=== PATIENT | female | born 1935 | race Caucasian/White ===

== ENCOUNTER → 2016-08-06 | Outpatient (CLI) | payer MEDICARE, OTHER | LOC: LAB 09:26 | PROVIDERS: Internal Medicine Nephrology | DX: N18.3 Chronic kidney disease, stage 3 (moderate) (principal) | CPT/HCPCS: 36415; 80048; 81001; 82043; 82570 ==

== ENCOUNTER → 2016-09-28 | Outpatient (CLI) | payer MEDICARE, OTHER | LOC: HEART 5 10:53 | DX: R00.2 Palpitations (principal); I48.0 Paroxysmal atrial fibrillation; R55 Syncope and collapse | CPT/HCPCS: 93306 ==

== ENCOUNTER → 2016-10-01 | Outpatient (CLI) | payer MEDICARE, OTHER | LOC: HEART 5 09-21 09:30 | DX: I65.29 Occlusion and stenosis of unspecified carotid artery (principal); R55 Syncope and collapse; I10 Essential (primary) hypertension ==

== ENCOUNTER → 2016-10-02 | Outpatient (CLI) | payer MEDICARE, OTHER | LOC: RT 12:09 | DX: R55 Syncope and collapse (principal) ==

== ENCOUNTER → 2020-08-06 | Outpatient (CLI) | payer MEDICARE, OTHER ==
[~2020-08-06] MED LIST: AREDS; ASPIR 8181 MG PO; ATORVASTATIN CA80 MG PO; AUGMENTIN 875-1 EACH PO; BACITRACIN ZINC TD; BENTYL 20MG TAB20 MG PO; BETAPACE160 MG PO; BUSPIRONE HCL7.5 MG PO; CARDIZEM CD360 MG PO; CILOSTAZOL50 MG PO; COLACE 100MG C100 MG PO; DILTIAZEM ER120 M1 PO; DITROPAN XL15 MG PO; DITROPAN XL5 MG PO; ELIQUIS5 MG PO; ESCITALOPRAM OX10 MG PO; ESCITALOPRAM OX20 MG PO; FEOSOL325 MG PO; FOLIC ACID 1 MG1 MG PO; GABAPENTIN600 MG PO; HYDROCODON-ACE1 EAC2 PO; I-VITE TABLET1 EACH PO; IMDUR ER TAB 3030 MG PO; IPRAT-ALBUT 0.5-3 ML NEB; IRON325 M1 PO; ISORDIL TAB 3030 MG PO; ISOSORBIDE MONO30 MG PO; KEFLEX CAP 500500 MG PO; KEFLEX500 MG PO; LASIX20 MG PO; MESALAMINE DR400 MG PO; METOPROLOL SUC100 MG PO; MUCINEX600 MG PO; MYCOSTATIN POWD15 GM TOP; MYRBETRIQ50 MG PO; NEURONTIN 300300 MG PO; NITROSTAT0.4 MG SL; NORCO 5-325 TA1 EACH PO; NORVASC2.5 MG PO; PENTASA500 MG PO; PLETAL 100 MG100 MG PO; PRAMIPEXOLE D0.75 MG PO; PRAMIPEXOLE DIHY1 MG PO; PROAIR HFA8.5 GM INH; PROTONIX 20 MG20 MG PO; SENOKOT-S TABL1 EACH PO; SOTALOL120 MG PO; SYNTHROID100 MCG PO; SYNTHROID88 MCG PO; TOPROL XL200 MG PO; TYLENOL W/CODEIN1 E1 PO; UNISOM PO; VITAMIN B PO; ZOLOFT50 MG PO
[2020-08-07 10:12] LABS: CREATININE, URINE 76.4 mg/dL (Not Estab.)
== END ==
LOC: LAB 08:30
PROVIDERS: Internal Medicine Nephrology
DX: N18.30 Chronic kidney disease, stage 3 unspecified (principal)
CPT/HCPCS: 36415; 80053; 81001; 82043; 82570; 84156

== ENCOUNTER 2020-10-24 19:13 | Inpatient (IN) | payer MEDICARE, OTHER ==
[~2020-10-24] VITALS: Ht 162.6 cm; Wt 83.9 kg
[~2020-10-24 19:13] MED LIST changes: -ESCITALOPRAM OX10 MG PO; -FOLIC ACID 1 MG1 MG PO; -GABAPENTIN600 MG PO; -HYDROCODON-ACE1 EAC2 PO; -IPRAT-ALBUT 0.5-3 ML NEB; -ISOSORBIDE MONO30 MG PO; -MESALAMINE DR400 MG PO; -METOPROLOL SUC100 MG PO; -PRAMIPEXOLE D0.75 MG PO; -SOTALOL120 MG PO
[2020-10-24 19:59] LABS: HEMOGLOBIN 12.2 gm/dl (12.3-15.3); RED BLOOD COUNT 3.35 M/UL (4.00-5.10)
[2020-10-24 20:33] LABS: BUN/CREATININE RATIO 26 (0-10)
[2020-10-24 22:59] LABS: BORDETELLA PARAPERTUSSIS Not Detected (Not Detectd); BORDETELLA PERTUSSIS Not Detected (Not Detectd); CHLAMYDIA PNEUMONIAE Not Detected (Not Detectd); CORONAVIRUS HKU1 Not Detected (Not Detectd); CORONAVIRUS NL63 Not Detected (Not Detectd); CORONAVIRUS OC43 Not Detected (Not Detectd); CORONOAVIRUS 229E Not Detected (Not Detectd); HUMAN METAPNEUMOVIRUS Not Detected (Not Detectd); HUMAN RHINOVIRUS/ENTEROVIRUS Not Detected (Not Detectd); INFLUENZA A Not Detected (Not Detectd); INFLUENZA B Not Detected (Not Detectd); MYCOPLASMA PNEUMONIAE Not Detected (Not Detectd); PARAINFLUENZA VIRUS 1 Not Detected (Not Detectd); PARAINFLUENZA VIRUS 2 Not Detected (Not Detectd); PARAINFLUENZA VIRUS 3 Not Detected (Not Detectd); PARAINFLUENZA VIRUS 4 Not Detected (Not Detectd); RESPIRATORY SYNCYTIAL VIRUS Not Detected (Not Detectd)
[2020-10-25 00:22] LABS: SARS-CoV-2 NOT DETECTED (Not Detectd)
[2020-10-25] MEDS ORDERED: ESCITALOPRAM OX10 MG PO (00:53)
[2020-10-25] MEDS ORDERED: ISOSORBIDE MONO30 MG PO (00:54)
[2020-10-25] MEDS ORDERED: MESALAMINE DR400 MG PO (00:56)
[2020-10-25] MEDS ORDERED: METOPROLOL SUC100 MG PO (00:57)
[2020-10-25] MEDS ORDERED: PLETAL 100 MG100 MG PO (00:58)
[2020-10-25] MEDS ORDERED: SOTALOL120 MG PO (00:58)
[2020-10-25] MEDS ORDERED: PRAMIPEXOLE D0.75 MG PO (00:58)
[2020-10-25] MEDS ORDERED: FOLIC ACID 1 MG1 MG PO (00:59)
[2020-10-25] MEDS ORDERED: HYDROCODON-ACE1 EAC2 PO (01:00)
[2020-10-25] MEDS ORDERED: GABAPENTIN600 MG PO (01:04)
[2020-10-25 07:20] LABS: HEMOGLOBIN 12.6 gm/dl (12.3-15.3); RED BLOOD COUNT 3.51 M/UL (4.00-5.10)
[2020-10-25 07:21] LABS: WHITE BLOOD COUNT 7.4 K/UL (4.5-11.0)
[2020-10-26 05:00] LABS: HEMOGLOBIN 11.2 gm/dl (12.3-15.3)
[2020-10-26 05:03] LABS: RED BLOOD COUNT 3.11 M/UL (4.00-5.10); WHITE BLOOD COUNT 10.2 K/UL (4.5-11.0)
--- NOTE | 2020-10-26 23:52 | NUR ---
patient 02 saturation low at this time (85-88%). Oxygen titrated to 5L, Respiratory notified to administer breathing treatment. MD notified of patient status condition change. Asked physician to assess patient at this time. New orders for Robitussin DM 15ml QID prn. WCTM
--- NOTE | 2020-10-26 23:59 | NUR ---
Post breathing treatment, highest 02 saturation is 92%, patient in high bates's, had patient cough to try to clear secretions. Patient unable to clear secretions herself at this time. notified. ALYX
--- NOTE | 2020-10-27 05:45 | NUR ---
Patient 02 saturation low at this time. 85-85% Oxygen tirated to 5L, Respiratory notified to administer breathing treatment. MD notified of patient status condition change. Asked physician to assess pateint. New orders for Robitussin DM 15ml QID via telephone. TM
[2020-10-28] MEDS ORDERED: AUGMENTIN 875-1 EACH PO (16:30)
[2020-10-28] MEDS ORDERED: IPRAT-ALBUT 0.5-3 ML NEB (16:30)
--- NOTE | 2020-10-29 12:36 | NUR ---
1215- DR MONAHAN NOTIFIED OF FAMILY CONCERN WITH MEDCATION THAT PATIENT NO LONGER TAKES AND IS ON [facility] MED LIST. NEW ORDER TO [facility].
== END 2020-10-29 12:24 | disposition home or self-care (01) | DRG 177 ==
LOC: ER1 19:13 → MED SURG 4 22:28 → CDU 22:28 → MED SURG 4 10-25 00:06
PROVIDERS: Family Medicine; Internal Medicine; Physician Assistant Medical; ADMIT Internal Medicine
DX: J69.0 Pneumonitis due to inhalation of food and vomit (principal); J96.21 Acute and chronic respiratory failure with hypoxia; M62.82 Rhabdomyolysis; N17.9 Acute kidney failure, unspecified; J44.0 Chronic obstructive pulmonary disease with (acute) lower respiratory infection; J44.1 Chronic obstructive pulmonary disease with (acute) exacerbation; K51.90 Ulcerative colitis, unspecified, without complications; Z20.822 Contact with and (suspected) exposure to COVID-19; I12.9 Hypertensive chronic kidney disease with stage 1 through stage 4 chronic kidney disease, or unspecified chronic kidney disease; N18.30 Chronic kidney disease, stage 3 unspecified; I48.0 Paroxysmal atrial fibrillation; I49.5 Sick sinus syndrome; K21.9 Gastro-esophageal reflux disease without esophagitis; R60.9 Edema, unspecified; I73.9 Peripheral vascular disease, unspecified; E03.9 Hypothyroidism, unspecified; I65.22 Occlusion and stenosis of left carotid artery; F32.9 Major depressive disorder, single episode, unspecified; H91.90 Unspecified hearing loss, unspecified ear; M81.0 Age-related osteoporosis without current pathological fracture; M51.36 Other intervertebral disc degeneration, lumbar region; K57.90 Diverticulosis of intestine, part unspecified, without perforation or abscess without bleeding; E55.9 Vitamin D deficiency, unspecified; Z95.820 Peripheral vascular angioplasty status with implants and grafts; Z79.899 Other long term (current) drug therapy; Z90.710 Acquired absence of both cervix and uterus; Z80.52 Family history of malignant neoplasm of bladder; Z95.0 Presence of cardiac pacemaker; Z80.8 Family history of malignant neoplasm of other organs or systems; Z81.8 Family history of other mental and behavioral disorders; Z87.891 Personal history of nicotine dependence
CPT/HCPCS: 36415; 36600; 70450; 71045; 80048; 80053; 81001; 82550; 82553; 82803; 83605; 83735; 83880; 84484; 85025; 85027; 85610; 87040; 87077; 87081; 87086; 87186; 87633; 93005; 94640; 94664; 94760; 96365; 96366; 96375; 97116-GP-CQ; 97161; 97530-GP-CQ; 99285; G0378; J1650; J2543; J2920; J2930; J3370; J7030

== ENCOUNTER → 2020-12-28 | Outpatient (CLI) | payer MEDICARE, OTHER ==
[~2020-12-28] MED LIST changes: +ESCITALOPRAM OX10 MG PO; +FOLIC ACID 1 MG1 MG PO; +GABAPENTIN600 MG PO; +HYDROCODON-ACE1 EAC2 PO; +IPRAT-ALBUT 0.5-3 ML NEB; +ISOSORBIDE MONO30 MG PO; +MESALAMINE DR400 MG PO; +METOPROLOL SUC100 MG PO; +PRAMIPEXOLE D0.75 MG PO; +SOTALOL120 MG PO
== END ==
LOC: WCC 13:00
DX: I87.2 Venous insufficiency (chronic) (peripheral) (principal); L97.822 Non-pressure chronic ulcer of other part of left lower leg with fat layer exposed; L97.812 Non-pressure chronic ulcer of other part of right lower leg with fat layer exposed; S91.301A Unspecified open wound, right foot, initial encounter; I13.0 Hypertensive heart and chronic kidney disease with heart failure and stage 1 through stage 4 chronic kidney disease, or unspecified chronic kidney disease; N18.4 Chronic kidney disease, stage 4 (severe); I50.9 Heart failure, unspecified; I25.10 Atherosclerotic heart disease of native coronary artery without angina pectoris; J44.9 Chronic obstructive pulmonary disease, unspecified; I73.9 Peripheral vascular disease, unspecified; R60.1 Generalized edema; Z87.891 Personal history of nicotine dependence; Z79.891 Long term (current) use of opiate analgesic; Z79.2 Long term (current) use of antibiotics; Z79.899 Other long term (current) drug therapy; X58.XXXA Exposure to other specified factors, initial encounter
CPT/HCPCS: G0463

== ENCOUNTER → 2021-01-03 | Outpatient (CLI) | payer MEDICARE, OTHER | LOC: WCC 13:15 | DX: I87.2 Venous insufficiency (chronic) (peripheral) (principal); L97.812 Non-pressure chronic ulcer of other part of right lower leg with fat layer exposed; I13.0 Hypertensive heart and chronic kidney disease with heart failure and stage 1 through stage 4 chronic kidney disease, or unspecified chronic kidney disease; I50.9 Heart failure, unspecified; N18.4 Chronic kidney disease, stage 4 (severe); J44.9 Chronic obstructive pulmonary disease, unspecified; I73.9 Peripheral vascular disease, unspecified; Z95.820 Peripheral vascular angioplasty status with implants and grafts; Z79.84 Long term (current) use of oral hypoglycemic drugs; I25.10 Atherosclerotic heart disease of native coronary artery without angina pectoris; R60.1 Generalized edema ==

== ENCOUNTER → 2021-01-10 | Outpatient (CLI) | payer MEDICARE, OTHER | LOC: WCC 14:00 | DX: I87.2 Venous insufficiency (chronic) (peripheral) (principal); L97.812 Non-pressure chronic ulcer of other part of right lower leg with fat layer exposed; L97.822 Non-pressure chronic ulcer of other part of left lower leg with fat layer exposed; S91.301A Unspecified open wound, right foot, initial encounter; X58.XXXA Exposure to other specified factors, initial encounter; I73.9 Peripheral vascular disease, unspecified; I13.0 Hypertensive heart and chronic kidney disease with heart failure and stage 1 through stage 4 chronic kidney disease, or unspecified chronic kidney disease; N18.4 Chronic kidney disease, stage 4 (severe); I50.9 Heart failure, unspecified; J44.9 Chronic obstructive pulmonary disease, unspecified; Z95.820 Peripheral vascular angioplasty status with implants and grafts; Z79.899 Other long term (current) drug therapy; Z79.891 Long term (current) use of opiate analgesic; I25.10 Atherosclerotic heart disease of native coronary artery without angina pectoris; R60.1 Generalized edema | CPT/HCPCS: G0463 ==

== ENCOUNTER → 2021-01-24 | Outpatient (CLI) | payer MEDICARE, OTHER ==
[2021-01-24 12:07] LABS: HEMOGLOBIN 11.5 gm/dl (12.3-15.3); RED BLOOD COUNT 3.2 M/UL (4.00-5.10); WHITE BLOOD COUNT 4.9 K/UL (4.5-11.0)
== END ==
LOC: LAB 10:19
PROVIDERS: Family Medicine
DX: I12.9 Hypertensive chronic kidney disease with stage 1 through stage 4 chronic kidney disease, or unspecified chronic kidney disease (principal); N18.32 Chronic kidney disease, stage 3b; D63.1 Anemia in chronic kidney disease; E03.9 Hypothyroidism, unspecified; E53.8 Deficiency of other specified B group vitamins; E78.2 Mixed hyperlipidemia
CPT/HCPCS: 36415; 80053; 80061; 80076; 82607; 82728; 83540; 83550; 84439; 84443; 85027; 85045

== ENCOUNTER → 2021-01-31 | Outpatient (CLI) | payer MEDICARE, OTHER | LOC: WCC 09:00 | DX: I87.2 Venous insufficiency (chronic) (peripheral) (principal); L97.821 Non-pressure chronic ulcer of other part of left lower leg limited to breakdown of skin; L97.811 Non-pressure chronic ulcer of other part of right lower leg limited to breakdown of skin; S91.301A Unspecified open wound, right foot, initial encounter; I12.9 Hypertensive chronic kidney disease with stage 1 through stage 4 chronic kidney disease, or unspecified chronic kidney disease; N18.4 Chronic kidney disease, stage 4 (severe); I50.9 Heart failure, unspecified; I25.10 Atherosclerotic heart disease of native coronary artery without angina pectoris; I73.9 Peripheral vascular disease, unspecified; J44.9 Chronic obstructive pulmonary disease, unspecified; R60.1 Generalized edema; Z79.2 Long term (current) use of antibiotics; Z79.899 Other long term (current) drug therapy; X58.XXXA Exposure to other specified factors, initial encounter | CPT/HCPCS: 97597 ==

== ENCOUNTER 2021-05-17 10:57 | Observation (INO) | payer MEDICARE, OTHER ==
[~2021-05-17] VITALS: Ht 157.5 cm; Wt 96.2 kg
[~2021-05-17 10:57] MED LIST changes: +ATORVASTATIN CA40 MG PO; -ATORVASTATIN CA80 MG PO; -METOPROLOL SUC100 MG PO; +METOPROLOL SUCC50 MG PO
[2021-05-17 14:58] LABS: HEMOGLOBIN 12.1 gm/dl (12.3-15.3); RED BLOOD COUNT 3.9 M/UL (4.00-5.10); WHITE BLOOD COUNT 6.8 K/UL (4.5-11.0)
[2021-05-17 16:13] LABS: BUN/CREATININE RATIO 31 (0-10)
[2021-05-17] MEDS ORDERED: ELIQUIS5 MG PO (17:32)
[2021-05-17] MEDS ORDERED: LEVOTHYROXINE137 MCG PO (17:32)
[2021-05-17] MEDS ORDERED: CARDIZEM LA120 MG PO (17:33)
[2021-05-17] MEDS ORDERED: PRESERVISION A1 EAC2 PO (17:33)
[2021-05-18 06:48] LABS: HEMOGLOBIN 10.6 gm/dl (12.3-15.3); WHITE BLOOD COUNT 6.1 K/UL (4.5-11.0)
[2021-05-18 06:52] LABS: RED BLOOD COUNT 3.43 M/UL (4.00-5.10)
[2021-05-19 06:27] LABS: HEMOGLOBIN 10.2 gm/dl (12.3-15.3); RED BLOOD COUNT 3.34 M/UL (4.00-5.10); WHITE BLOOD COUNT 6.4 K/UL (4.5-11.0)
[2021-05-20 06:10] LABS: HEMOGLOBIN 10.8 gm/dl (12.3-15.3); RED BLOOD COUNT 3.5 M/UL (4.00-5.10); WHITE BLOOD COUNT 6.6 K/UL (4.5-11.0)
[2021-05-20] MEDS ORDERED: LASIX20 MG PO (09:30)
[2021-05-20] MEDS ORDERED: OMNICEF 300 MG300 MG PO (13:03)
[2021-05-21 07:42] LABS: HEMOGLOBIN 9.6 gm/dl (12.3-15.3); RED BLOOD COUNT 3.24 M/UL (4.00-5.10); WHITE BLOOD COUNT 6.7 K/UL (4.5-11.0)
== END 2021-05-21 14:00 | disposition home or self-care (01) ==
LOC: ER1 10:57 → 3 EAST 16:02 → CDU 16:02 → MED SURG 4 16:02 → 3 EAST 16:02 → MED SURG 4 05-18 16:06
PROVIDERS: Internal Medicine; Internal Medicine Nephrology; Physician Assistant; Physician Assistant Medical; ADMIT Internal Medicine
DX: I13.0 Hypertensive heart and chronic kidney disease with heart failure and stage 1 through stage 4 chronic kidney disease, or unspecified chronic kidney disease (principal); I50.33 Acute on chronic diastolic (congestive) heart failure; N18.30 Chronic kidney disease, stage 3 unspecified; I48.0 Paroxysmal atrial fibrillation; J44.9 Chronic obstructive pulmonary disease, unspecified; M81.0 Age-related osteoporosis without current pathological fracture; K21.9 Gastro-esophageal reflux disease without esophagitis; N17.9 Acute kidney failure, unspecified; R60.1 Generalized edema; Z20.822 Contact with and (suspected) exposure to COVID-19; Z95.828 Presence of other vascular implants and grafts; Z95.0 Presence of cardiac pacemaker; E78.5 Hyperlipidemia, unspecified; E03.9 Hypothyroidism, unspecified; K51.90 Ulcerative colitis, unspecified, without complications; E53.8 Deficiency of other specified B group vitamins; I49.5 Sick sinus syndrome; Z79.82 Long term (current) use of aspirin; I08.3 Combined rheumatic disorders of mitral, aortic and tricuspid valves
CPT/HCPCS: 36415; 71045; 80048; 80053; 80076; 81001; 82550; 82553; 83735; 83880; 84484; 85025; 85027; 87077; 87086; 87186; 93005; 94760; 96374; 99285; G0378; J0696; U0002

== ENCOUNTER 2021-05-29 16:52 | Inpatient (IN) | payer MEDICARE, OTHER ==
[~2021-05-29] VITALS: Ht 162.6 cm; Wt 96.3 kg
[~2021-05-29 16:52] MED LIST changes: +CARDIZEM LA120 MG PO; +LEVOTHYROXINE137 MCG PO; -NITROSTAT0.4 MG SL; +OMNICEF 300 MG300 MG PO; +PRESERVISION A1 EAC2 PO
[2021-05-29 18:08] LABS: HEMOGLOBIN 11.2 gm/dl (12.3-15.3); RED BLOOD COUNT 3.67 M/UL (4.00-5.10); WHITE BLOOD COUNT 8.6 K/UL (4.5-11.0)
[2021-05-29 19:15] LABS: BUN/CREATININE RATIO 19 (0-10)
[2021-05-30 04:16] LABS: RED BLOOD COUNT 3.61 M/UL (4.00-5.10); WHITE BLOOD COUNT 9.7 K/UL (4.5-11.0)
[2021-05-30] MEDS ORDERED: NITROSTAT0.4 MG SL (21:25)
[2021-05-31 06:43] LABS: RED BLOOD COUNT 3.63 M/UL (4.00-5.10); WHITE BLOOD COUNT 8.9 K/UL (4.5-11.0)
--- NOTE | 2021-05-31 17:20 | NUR ---
patient oxygen dropped to 76, increased 02 to 4 liters, patients o2 sat was at 82, increased patients 02 to 6 liters and patients sat is 90-92%. MD ordered for 02 to be titrated to keep oxygen above 92 percent.
[2021-06-01 06:42] LABS: HEMOGLOBIN 10.4 gm/dl (12.3-15.3); RED BLOOD COUNT 3.4 M/UL (4.00-5.10); WHITE BLOOD COUNT 8.9 K/UL (4.5-11.0)
[2021-06-02 03:36] LABS: HEMOGLOBIN 10.1 gm/dl (12.3-15.3); RED BLOOD COUNT 3.37 M/UL (4.00-5.10); WHITE BLOOD COUNT 8.1 K/UL (4.5-11.0)
[2021-06-05 04:16] LABS: HEMOGLOBIN 9.4 gm/dl (12.3-15.3); RED BLOOD COUNT 3.15 M/UL (4.00-5.10); WHITE BLOOD COUNT 7.9 K/UL (4.5-11.0)
[2021-06-06] MEDS ORDERED: DILTIAZEM 24HR180 M1 PO (11:18)
== END 2021-06-06 15:30 | DRG 291 ==
LOC: ER1 16:52 → CDU 05-30 03:01 → PROG CARE 05-30 03:01 → M/S 05-31 01:13 → PROG CARE 06-02 00:26
PROVIDERS: Family Medicine; Internal Medicine; ADMIT Internal Medicine
DX: I13.0 Hypertensive heart and chronic kidney disease with heart failure and stage 1 through stage 4 chronic kidney disease, or unspecified chronic kidney disease (principal); I50.33 Acute on chronic diastolic (congestive) heart failure; Z20.822 Contact with and (suspected) exposure to COVID-19; N17.9 Acute kidney failure, unspecified; I48.20 Chronic atrial fibrillation, unspecified; K51.90 Ulcerative colitis, unspecified, without complications; H54.61 Unqualified visual loss, right eye, normal vision left eye; M81.0 Age-related osteoporosis without current pathological fracture; M47.896 Other spondylosis, lumbar region; K21.9 Gastro-esophageal reflux disease without esophagitis; N18.32 Chronic kidney disease, stage 3b; E53.8 Deficiency of other specified B group vitamins; J44.9 Chronic obstructive pulmonary disease, unspecified; I48.0 Paroxysmal atrial fibrillation; D50.9 Iron deficiency anemia, unspecified; D63.1 Anemia in chronic kidney disease; I49.5 Sick sinus syndrome; F32.9 Major depressive disorder, single episode, unspecified; E78.5 Hyperlipidemia, unspecified; Z79.01 Long term (current) use of anticoagulants; Z95.0 Presence of cardiac pacemaker; Z79.82 Long term (current) use of aspirin; Z87.440 Personal history of urinary (tract) infections; Z90.710 Acquired absence of both cervix and uterus; Z80.0 Family history of malignant neoplasm of digestive organs; Z80.52 Family history of malignant neoplasm of bladder
CPT/HCPCS: 36415; 36600; 71045; 80048; 80053; 80307; 82140; 82550; 82553; 82728; 82803; 83540; 83550; 83605; 83735; 84484; 85025; 85027; 87040; 93005; 94760; 96374; 96375; 97110; 97162; 97164; 97530; 99285; G0480; J0456; J1250; J1644; J1756; J1940; J2543; J7030; P9047

== ENCOUNTER 2021-06-08 16:16 | Emergency (ER) | payer MEDICARE, OTHER ==
[~2021-06-08 16:16] MED LIST changes: +DILTIAZEM 24HR180 M1 PO; +NITROSTAT0.4 MG SL
[2021-06-08 17:57] LABS: HEMOGLOBIN 10.2 gm/dl (12.3-15.3); RED BLOOD COUNT 3.45 M/UL (4.00-5.10); WHITE BLOOD COUNT 5.9 K/UL (4.5-11.0)
[2021-06-08] MEDS ORDERED: BUMETANIDE1 MG PO (19:41)
== END 2021-06-08 20:53 | disposition home or self-care (01) ==
LOC: ER1 16:16
PROVIDERS: Preventive Medicine Occupational Medicine
DX: I50.9 Heart failure, unspecified (principal); E11.9 Type 2 diabetes mellitus without complications; Z20.822 Contact with and (suspected) exposure to COVID-19
CPT/HCPCS: 36600; 71045; 80053; 82550; 82553; 82803; 83605; 83690; 83874; 83880; 84484; 85025; 85652; 86140; 93005; 96374; 99285; U0002

== ENCOUNTER 2021-07-13 10:23 | Inpatient (IN) | payer MEDICARE, OTHER ==
[~2021-07-13] VITALS: Ht 167.6 cm; Wt 79.6 kg
[~2021-07-13 10:23] MED LIST changes: -ATORVASTATIN CA40 MG PO; +ATORVASTATIN CA80 MG PO; +BUMETANIDE1 MG PO
[2021-07-13 11:24] LABS: HEMOGLOBIN 11.3 gm/dl (12.3-15.3); RED BLOOD COUNT 3.63 M/UL (4.00-5.10); WHITE BLOOD COUNT 6.5 K/UL (4.5-11.0)
[2021-07-13] MEDS ORDERED: DILTIAZEM 24HR180 M1 PO (14:18)
[2021-07-13] MEDS ORDERED: FUROSEMIDE40 MG PO (14:21)
[2021-07-13] MEDS ORDERED: TYLENOL325 MG PO (15:02)
[2021-07-13] MEDS ORDERED: VITAMIN D325 MC6 PO (15:03)
[2021-07-13] MEDS ORDERED: VISION FORMULA1 EAC1 PO (15:04)
[2021-07-14 04:18] LABS: HEMOGLOBIN 10.9 gm/dl (12.3-15.3); RED BLOOD COUNT 3.48 M/UL (4.00-5.10); WHITE BLOOD COUNT 7.2 K/UL (4.5-11.0)
[2021-07-14 14:12] LABS: ACINETOBACTER BAUMANNII Not Detected (Negative); CANDIDA ALBICANS Not Detected (Negative); CANDIDA KRUSEI Not Detected (Negative); CANDIDA TROPICALIS Not Detected (Negative); ENTEROCOCCUS Not Detected (Negative); ESCHERICHIA COLI Not Detected (Negative); HAEMOPHILUS INFLUENZAE Not Detected (Negative); KLEBSIELLA OXYTOCA Not Detected (Negative); KLEBSIELLA PNEUMONIAE Not Detected (Negative); KPC-CARBAPENEM-RESISTANCE GENE Not Detected (Negative); PROTEUS Not Detected (Negative); PSEUDOMONAS AERUGINOSA Not Detected (Negative); SERRATIA MARCESANS Not Detected (Negative); STAPHYLOCOCCUS AUREUS Not Detected (Negative); STREP AGALACTIAE (GROUP B) Not Detected (Negative); STREP PYOGENES (GROUP A) Not Detected (Negative); STREPTOCOCCUS Not Detected (Negative); vanA/B (VANCOMYCIN RESIST GENE Not Detected (Negative)
[2021-07-14 15:37] LABS: STAPHYLOCOCCUS DETECTED (Negative); mecA (METHICILLIN RESIST GENE DETECTED (Negative)
[2021-07-15 03:11] LABS: HEMOGLOBIN 11.3 gm/dl (12.3-15.3); RED BLOOD COUNT 3.58 M/UL (4.00-5.10); WHITE BLOOD COUNT 7.1 K/UL (4.5-11.0)
[2021-07-16 03:12] LABS: HEMOGLOBIN 10.9 gm/dl (12.3-15.3); RED BLOOD COUNT 3.45 M/UL (4.00-5.10); WHITE BLOOD COUNT 7.2 K/UL (4.5-11.0)
[2021-07-17 03:37] LABS: HEMOGLOBIN 11.4 gm/dl (12.3-15.3); RED BLOOD COUNT 3.62 M/UL (4.00-5.10); WHITE BLOOD COUNT 7.9 K/UL (4.5-11.0)
[2021-07-18 05:01] LABS: HEMOGLOBIN 11.3 gm/dl (12.3-15.3); RED BLOOD COUNT 3.57 M/UL (4.00-5.10); WHITE BLOOD COUNT 6.3 K/UL (4.5-11.0)
[2021-07-20] MEDS ORDERED: IPRAT-ALBUT 0.5-3 ML NEB (10:56)
[2021-07-20] MEDS ORDERED: HYDROCODON-ACE1 EAC2 PO (10:56)
[2021-07-20] MEDS ORDERED: GABAPENTIN300 MG PO (10:56)
[2021-07-20] MEDS ORDERED: PROTONIX 40 MG40 M1 PO (10:56)
[2021-07-23 03:12] LABS: HEMOGLOBIN 12.4 gm/dl (12.3-15.3); RED BLOOD COUNT 3.89 M/UL (4.00-5.10); WHITE BLOOD COUNT 6.7 K/UL (4.5-11.0)
[2021-07-24] MEDS ORDERED: GABAPENTIN100 MG PO (17:45)
[2021-07-26 06:41] LABS: HEMOGLOBIN 13.2 gm/dl (12.3-15.3); RED BLOOD COUNT 4.12 M/UL (4.00-5.10); WHITE BLOOD COUNT 7.9 K/UL (4.5-11.0)
[2021-07-29] MEDS ORDERED: BUMETANIDE1 MG PO (09:06)
[2021-07-29] MEDS ORDERED: GABAPENTIN100 MG PO (09:22)
[2021-07-29] MEDS ORDERED: PROTONIX 40 MG40 M1 PO (09:22)
[2021-07-29] MEDS ORDERED: IPRAT-ALBUT 0.5-3 ML NEB (09:22)
--- NOTE | 2021-07-29 12:42 | NUR ---
REPORT CALLED TO [facility] [employer] AMB[facility] SERVICE NOTIFIED OF TRANSPORT NEED.
== END 2021-07-29 17:00 | DRG 698 ==
LOC: ER1 10:23 → CDU 14:13 → MED SURG 4 14:13
PROVIDERS: Emergency Medicine; Internal Medicine; Physician Assistant; ADMIT Internal Medicine
PROC: 3E03329 Introduction of Other Anti-infective into Peripheral Vein, Percutaneous Approach (ICD-10-PCS; principal; 2021-07-13)
PROC: 5A0955A Assistance with Respiratory Ventilation, Greater than 96 Consecutive Hours, High Flow/Velocity Cannula (ICD-10-PCS; 2021-07-17)
DX: T83.518A Infection and inflammatory reaction due to other urinary catheter, initial encounter (principal); J96.21 Acute and chronic respiratory failure with hypoxia; I50.33 Acute on chronic diastolic (congestive) heart failure; G93.41 Metabolic encephalopathy; J18.9 Pneumonia, unspecified organism; N30.00 Acute cystitis without hematuria; N17.9 Acute kidney failure, unspecified; I13.0 Hypertensive heart and chronic kidney disease with heart failure and stage 1 through stage 4 chronic kidney disease, or unspecified chronic kidney disease; K51.90 Ulcerative colitis, unspecified, without complications; J90 Pleural effusion, not elsewhere classified; Z20.822 Contact with and (suspected) exposure to COVID-19; Z66 Do not resuscitate; E03.9 Hypothyroidism, unspecified; I87.2 Venous insufficiency (chronic) (peripheral); K21.9 Gastro-esophageal reflux disease without esophagitis; K57.90 Diverticulosis of intestine, part unspecified, without perforation or abscess without bleeding; M81.0 Age-related osteoporosis without current pathological fracture; M19.90 Unspecified osteoarthritis, unspecified site; E53.8 Deficiency of other specified B group vitamins; R53.81 Other malaise; F32.A Depression, unspecified; E78.5 Hyperlipidemia, unspecified; I49.5 Sick sinus syndrome; E66.9 Obesity, unspecified; H54.7 Unspecified visual loss; H91.90 Unspecified hearing loss, unspecified ear; N18.30 Chronic kidney disease, stage 3 unspecified; Y84.6 Urinary catheterization as the cause of abnormal reaction of the patient, or of later complication, without mention of misadventure at the time of the procedure; I73.9 Peripheral vascular disease, unspecified; I48.0 Paroxysmal atrial fibrillation; E87.6 Hypokalemia; D75.89 Other specified diseases of blood and blood-forming organs; F03.90 Unspecified dementia, unspecified severity, without behavioral disturbance, psychotic disturbance, mood disturbance, and anxiety; E83.42 Hypomagnesemia; I27.20 Pulmonary hypertension, unspecified; Z95.0 Presence of cardiac pacemaker; Z74.01 Bed confinement status; Z79.899 Other long term (current) drug therapy; Z87.440 Personal history of urinary (tract) infections; Z79.01 Long term (current) use of anticoagulants; Z95.1 Presence of aortocoronary bypass graft; Z90.710 Acquired absence of both cervix and uterus; Z87.891 Personal history of nicotine dependence; Z80.52 Family history of malignant neoplasm of bladder; Z80.8 Family history of malignant neoplasm of other organs or systems; Z99.81 Dependence on supplemental oxygen; Z95.828 Presence of other vascular implants and grafts; Z79.82 Long term (current) use of aspirin; Z68.30 Body mass index [BMI] 30.0-30.9, adult
CPT/HCPCS: ECHO; 0240U; 36415; 36600; 51702; 70450; 71045; 80048; 80053; 80202; 81001; 82803; 83605; 83735; 83880; 84100; 84132; 84439; 84443; 85025; 85027; 86140; 87040; 87077; 87081; 87086; 87150; 87186; 93005; 93306; 94640; 94664; 94760; 96374; 96375; 97110; 97110-GP-CQ; 97162; 97167; 97530; 97530-GP-CQ; 99285; J0692; J0696; J1335; J1644; J1940; J3370; J3475; J7070